=== PATIENT | female | born 1995 | race Caucasian/White ===

== ENCOUNTER 2017-08-10 12:25 | Emergency (ER) | payer SELFPAY ==
[2017-08-10 13:25] VITALS: BP 120/73; PULSE 70; RESP 20; TEMP 36.6; O2SAT 100; BMI 38.2
--- NOTE | 2017-08-10 14:04 | HMH.EDUTC ---
[facility] [place] Disposition Clinical Impression: URI (upper respiratory infection) Qualifiers: URI type: unspecified URI Qualified Code(s): J06.9 - Acute upper respiratory infection, unspecified Disposition: Home, Self-Care Condition on Discharge: Good Instructions: Sore Throat, DI for Nasal Congestion Additional Instructions: * Monitor Temp. Tylenol and/or Ibuprofen as needed. ER if fever is no less than 101 despite alternating Tylenol and Ibuprofen * Encourage fluids, water, Gatorade, powerade, pedialyte if /toddler/or child * Warm salt water gargles for throat irritation *Warm fluids *Sore throat lozenges *Sleep elevated *humidifier or vaporizer Lots of rest Increase fluids, water, Gatorade, powerade *Flonase 2 sprays each nostril daily but may take 2-3 days to notice improvement with it *Bromfed may cause drowsiness. Know how it effect you or your child. Before driving, caring for small children or sending your child to school *Your throat swab was sent to lab for culture. Those results area typically sent to your primary care physician. Be sure to follow up in 2-3 days if no improvement so they can review those results and treat if necessary If you dont have primary care I recommend you get one, but in the mean time you will have to return to a walk in clinic Follow up IMMEDIATELY for new or worsening of symptoms OR no noticeable improvement over the next 48-72 hours. 911 immediately for any life threatening symptoms such as chest pain or difficulty breathing Prescriptions: Brompheniramine/Pseudoephed/Dm [Bromfed DM Cough Syrup 5mL] 10 ml PO Q4HP PRN #250 ml PRN Reason: Cough Azithromycin [Z-Brant 250mg Tab] 250 mg PO UD DOSE PK #6 tab Fluticasone Propionate [Flonase 50mcg nasal spray 16gm] 2 spr NS DAILY #1 bottle predniSONE [Prednisone 5mg Tab Dose-Pack] 5 mg PO UD DOSE PK #1 pack Time of Disposition: 14:20 Medical Decision Making - Medical Records Medical records reviewed: Yes: I reviewed the patient's medical records. Vital Signs: 08/10/17 13:25 Temperature 98 F Temperature Source Temporal Artery Scan Pulse Rate [Right] 70 Respiratory Rate 20 Blood Pressure [Right Arm] 120/73 Blood Pressure Mean [Right Arm] 88 Blood Pressure Source [Right Arm] Automatic Cuff Blood Pressure Position [Right Arm] Sitting 02 Sat by Pulse Oximetry 100 Oxygen Delivery Method Room Air - Alexandru Inquiry Pt receiving controlled substance: No Alexandru was queried for this patient: No [facility] [place] HPI - General Stated complaint: body aches sore throat vomitting Mode of Arrival: Ambulatory Source of Information: Patient Limitations: No Limitations Description of Symptoms (Recalled from Triage Doc. by RN): SORE THROAT, BODY ACHES HEENT Symptoms (Recalled from RN notes): Yes Resp Symptoms (Recalled from RN notes): No Skin Symptoms (Recalled from RN notes): No MS Symptoms (Recalled from RN notes): No Functional Status (Recalled from RN notes): N - History of Present Illness Provider Complaint: Patient state that she has been having sorethroat, body aches, sinus pain and pressure State that it has continued to get worse over the last 2 days and state that she is having drainage in the back of her throat and it is making her sick at her stomach - Related Data Previous Rx's Medication Instructions Recorded Azithromycin [Z-Brant 250mg Tab] 250 mg PO UD DOSE PK #6 tab 08/10/17 Brompheniramine/Pseudoephed/Dm 10 ml PO Q4HP PRN #250 ml 08/10/17 [Bromfed DM Cough Syrup 5mL] Fluticasone Propionate [Flonase 2 spr NS DAILY #1 bottle 08/10/17 50mcg nasal spray 16gm] predniSONE [Prednisone 5mg Tab 5 mg PO UD DOSE PK #1 pack 08/10/17 Dose-Pack] Allergies Allergy/AdvReac Type Severity Reaction Status Date / Time No Known Allergies Allergy Verified 08/10/17 13:29 - Worker's Comp Is this a Worker's Comp case?: No [facility] History I have reviewed the patient's past medical history: Yes - *Social History Smoking Status: Current ever
[2017-08-10 14:23] VITALS: BP 120/73; PULSE 70; RESP 20; TEMP 36.6
[2017-08-10 14:30] LABS: UTC Influenza A Antigen Negative (Negative); UTC Influenza B Antigen Negative (Negative)
== END 2017-08-10 14:33 | disposition home or self-care (01) ==
PROVIDERS: Emergency Provider Nurse Practitioner
DX: J06.9 Acute upper respiratory infection, unspecified (principal); F17.210 Nicotine dependence, cigarettes, uncomplicated
CPT/HCPCS: 87804; 99201

== ENCOUNTER 2017-09-09 10:20 | Emergency (ER) | payer OTHER, SELFPAY ==
[2017-09-09 10:32] VITALS: BP 133/87; PULSE 79; RESP 20; TEMP 36.6; O2SAT 98; BMI 37.5
--- NOTE | 2017-09-09 10:51 | HMH.EDUTC ---
[facility] [place] Clinical Impression: Vomiting and diarrhea Disposition: Home, Self-Care Condition on Discharge: Good Instructions: Diarrhea, DI for Cough -- Adult, DI for Vomiting -- Adult, Loperamide Additional Instructions: ? Drink extra fluids with and between meals. If you have difficulty drinking, try very small amounts of water or suck on ice chips. ? Avoid fruit juices, as these do not replace minerals and can actually increase diarrhea. ? Children and adults can use sports drinks to replenish electrolytes. Younger children and infants should use products formulated for children, like oral rehydration solutions. ? Eat food in small amounts and let your stomach recover. ? Get lots of rest. You may feel tired or weak. ? Check with your doctor before taking medications or giving them to children. Never give aspirin to children or teenagers with a viral illness. This can cause Meliton syndrome, a potentially life-threatening condition. Prescriptions: Promethazine/Dextromethorphan [Promethazine-Dm Syrup] 5 ml PO Q4HP PRN #300 ml MDD 30ML/DAY PRN Reason: Cough Ondansetron [Zofran 4mg ODT] 4 mg PO Q8H PRN #10 tab.rapdis PRN Reason: Nausea Time of Disposition: 11:38 Medical Decision Making - Medical Records Medical records reviewed: Yes: I reviewed the patient's medical records. Vital Signs: 09/09/17 10:32 Temperature 97.8 F Temperature Source Temporal Artery Scan Pulse Rate [Right Brachial] 79 Respiratory Rate 20 Blood Pressure [Right Arm] 133/87 Blood Pressure Mean [Right Arm] 102 Blood Pressure Source [Right Arm] Automatic Cuff Blood Pressure Position [Right Arm] Sitting 02 Sat by Pulse Oximetry 98 Oxygen Delivery Method Room Air - Lab Data Lab results reviewed: Yes: I reviewed the patient's lab results. Lab Results 09/09/17 10:57: Influenza Type A Ag Negative, Influenza Type B Ag Negative Orders (Tests/Meds): ED MEDICATIONS Discontinued Medications Generic Name Dose Route Start Last Admin Trade Name Freq PRN Reason Stop Dose Admin Ondansetron HCl 4 mg 09/09/17 10:58 09/09/17 10:59 Zofran 4mg Odt SL 09/09/17 10:59 4 mg ONCE ONE Administration - Alexandru Inquiry Pt receiving controlled substance: No Alexandru was queried for this patient: No - Reevaluation(s) Time: 11:27 Reevaluation #1: Patient states that medication helped with nausea no vomiting since arrival [facility] [place] HPI - General Stated complaint: N/V Mode of Arrival: Family Vehicle Source of Information: Patient Limitations: No Limitations Description of Symptoms (Recalled from Triage Doc. by RN): C/O COUGH WITH VOMITING AND DIARRHEA HEENT Symptoms (Recalled from RN notes): No Resp Symptoms (Recalled from RN notes): Yes (COUGH) Skin Symptoms (Recalled from RN notes): No MS Symptoms (Recalled from RN notes): No Functional Status (Recalled from RN notes): N/A - History of Present Illness Provider Complaint: Patient state that she was seen and treated about 3 weeks ago for sinus infectionm State that now she is having cough, nausea, vomiting and diarrhea State that she had several eppisodes of diarrhea State that she has not had any diarrhea today but has had several eppisodes of vomiting - Related Data Previous Rx's Medication Instructions Recorded Ondansetron [Zofran 4mg ODT] 4 mg PO Q8H PRN #10 tab.rapdis 09/09/17 Promethazine/Dextromethorphan 5 ml PO Q4HP PRN #300 ml MDD 09/09/17 [Promethazine-Dm Syrup] 30ML/DAY Allergies Allergy/AdvReac Type Severity Reaction Status Date / Time No Known Allergies Allergy Verified 08/10/17 13:29 - Worker's Comp Is this a Worker's Comp case?: No [facility] History I have reviewed the patient's past medical history: Yes - Social History Smoking Status: Current every day smoker Tobacco Type: cigarettes Alcohol Intake: never - Psychiatric History Expresses thoughts of harming self/others: None Suicide Plan Description: No Plan ROS Obtained: Yes
--- NOTE | 2017-09-09 10:58 | ED_ITS ---
[facility] [place] Clinical Impression: Vomiting and diarrhea Disposition: Home, Self-Care Condition on Discharge: Good Instructions: Diarrhea, DI for Cough -- Adult, DI for Vomiting -- Adult, Loperamide Additional Instructions: ? Drink extra fluids with and between meals. If you have difficulty drinking, try very small amounts of water or suck on ice chips. ? Avoid fruit juices, as these do not replace minerals and can actually increase diarrhea. ? Children and adults can use sports drinks to replenish electrolytes. Younger children and infants should use products formulated for children, like oral rehydration solutions. ? Eat food in small amounts and let your stomach recover. ? Get lots of rest. You may feel tired or weak. ? Check with your doctor before taking medications or giving them to children. Never give aspirin to children or teenagers with a viral illness. This can cause Dania?s syndrome, a potentially life-threatening condition. Prescriptions: Promethazine/Dextromethorphan [Promethazine-Dm Syrup] 5 ml PO Q4HP PRN #300 ml MDD 30ML/DAY PRN Reason: Cough Ondansetron [Zofran 4mg ODT] 4 mg PO Q8H PRN #10 tab.rapdis PRN Reason: Nausea Time of Disposition: 11:38 Medical Decision Making - Medical Records Medical records reviewed: Yes: I reviewed the patient's medical records. Vital Signs: 09/09/17 10:32 Temperature 97.8 F Temperature Source Temporal Artery Scan Pulse Rate [Right Brachial] 79 Respiratory Rate 20 Blood Pressure [Right Arm] 133/87 Blood Pressure Mean [Right Arm] 102 Blood Pressure Source [Right Arm] Automatic Cuff Blood Pressure Position [Right Arm] Sitting 02 Sat by Pulse Oximetry 98 Oxygen Delivery Method Room Air - Lab Data Lab results reviewed: Yes: I reviewed the patient's lab results. Lab Results 09/09/17 10:57: Influenza Type A Ag Negative, Influenza Type B Ag Negative Orders (Tests/Meds): ED MEDICATIONS Discontinued Medications Generic Name Dose Route Start Last Admin Trade Name Freq PRN Reason Stop Dose Admin Ondansetron HCl 4 mg 09/09/17 10:58 09/09/17 10:59 Zofran 4mg Odt SL 09/09/17 10:59 4 mg ONCE ONE Administration - Alexandru Inquiry Pt receiving controlled substance: No Alexandru was queried for this patient: No - Reevaluation(s) Time: 11:27 Reevaluation #1: Patient states that medication helped with nausea no vomiting since arrival [facility] [place]PI - General Stated complaint: N/V Mode of Arrival: Family Vehicle Source of Information: Patient Limitations: No Limitations Description of Symptoms (Recalled from Triage Doc. by RN): C/O COUGH WITH VOMITING AND DIARRHEA HEENT Symptoms (Recalled from RN notes): No Resp Symptoms (Recalled from RN notes): Yes (COUGH) Skin Symptoms (Recalled from RN notes): No MS Symptoms (Recalled from RN notes): No Functional Status (Recalled from RN notes): N/A - History of Present Illness Provider Complaint: Patient state that she was seen and treated about 3 weeks ago for sinus infectionm State that now she is having cough, nausea, vomiting and diarrhea State that she had several eppisodes of diarrhea State that she has not had any diarrhea today but has had several eppisodes of vomiting - Related Data Previous Rx's Medication Instructions Recorded Ondansetron [Zofran 4mg ODT] 4 mg PO Q8H PRN #10 tab.
[2017-09-09 11:22] LABS: UTC Influenza A Antigen Negative (Negative); UTC Influenza B Antigen Negative (Negative)
[2017-09-09 12:04] VITALS: BP 132/86; PULSE 78; RESP 20; TEMP 36.6; O2SAT 99
[2018-01-28 11:49] LABS: UTC Strep Screen (Rapid) Negative (Negative)
== END 2017-09-09 12:06 | disposition home or self-care (01) ==
PROVIDERS: Emergency Provider Nurse Practitioner
DX: J06.9 Acute upper respiratory infection, unspecified (principal); F17.210 Nicotine dependence, cigarettes, uncomplicated
CPT/HCPCS: 87804; 87880; 99202

== ENCOUNTER 2017-09-17 09:13 | Emergency (ER) | payer OTHER, SELFPAY ==
[2017-09-17 09:28] VITALS: BP 140/71; PULSE 101; RESP 20; TEMP 36.6; O2SAT 98; BMI 37.5
--- NOTE | 2017-09-17 09:54 | XR_ITS ---
XR chest 2V INDICATION: Cough COMPARISON: None available FINDINGS: The cardiovascular structures are unremarkable. No mediastinal shift or hilar mass is evident. The lungs are well expanded and clear bilaterally. The costophrenic sulci are sharp. No significant bony anomalies are apparent. IMPRESSION: Negative chest.
[2017-09-17 09:57] LABS: UTC Strep Screen (Rapid) Negative (Negative)
--- NOTE | 2017-09-17 09:57 | HMH.EDUTC ---
[facility] [place] Disposition Clinical Impression: URI (upper respiratory infection) Disposition: Home, Self-Care Condition on Discharge: Good Instructions: Sore Throat, DI for Cough -- Adult Additional Instructions: *Nasal saline and bulb syringe or nose tiera to remove nasal drainage and help with nasal congestion. Hard to eat, drink, or sleep with nasal congestion so important to keep nose cleaned out. * Monitor Temp. Tylenol and/or Ibuprofen as needed. ER if fever is no less than 101 despite alternating Tylenol and Ibuprofen * Encourage fluids, water, Gatorade, powerade, pedialyte if infant/toddler/or child * Warm salt water gargles for throat irritation *Warm fluids *Sore throat lozenges *Sleep elevated *humidifier or vaporizer Lots of rest Increase fluids, water, Gatorade, powerade *Flonase 2 sprays each nostril daily but may take 2-3 days to notice improvement with it *Your throat swab was sent to lab for culture. Those results area typically sent to your primary care physician. Be sure to follow up in 2-3 days if no improvement so they can review those results and treat if necessary If you dont have primary care I recommend you get one, but in the mean time you will have to return to a walk in clinic Follow up IMMEDIATELY for new or worsening of symptoms OR no noticeable improvement over the next 48-72 hours. 911 immediately for any life threatening symptoms such as chest pain or difficulty breathing Prescriptions: Brompheniramine/Pseudoephed/Dm [Bromfed DM Cough Syrup 5mL] 10 ml PO Q4HP PRN #350 ml PRN Reason: Cough Albuterol Sulfate [Albuterol HFA Inhaler] 2 puffs IH Q6HP PRN #1 inh PRN Reason: Shortness Of Breath Or Wheezing Azithromycin [Z-Brant 250mg Tab] 250 mg PO UD DOSE PK #6 tab Fluticasone Propionate [Flonase 50mcg nasal spray 16gm] 2 spr NS DAILY #1 bottle Ondansetron [Zofran 4mg ODT] 4 mg PO Q8H PRN #10 tab.rapdis PRN Reason: Nausea predniSONE [Prednisone 20mg Tab] 20 mg PO BID #10 tab Time of Disposition: 10:12 Medical Decision Making - Medical Records Medical records reviewed: Yes: I reviewed the patient's medical records. - Alexandru Inquiry Pt receiving controlled substance: No Alexandru was queried for this patient: No Vital Signs: 09/17/17 09:28 Temperature 98 F Temperature Source Temporal Artery Scan Pulse Rate [Right] 101 H Respiratory Rate 20 Blood Pressure [Right Arm] 140/71 Blood Pressure Mean [Right Arm] 94 Blood Pressure Source [Right Arm] Automatic Cuff Blood Pressure Position [Right Arm] Sitting 02 Sat by Pulse Oximetry 98 Oxygen Delivery Method Room Air - Lab Data Lab results reviewed: Yes: I reviewed the patient's lab results. Lab Results 09/17/17 09:51: Influenza Type A Ag Negative, Influenza Type B Ag Negative, Strep Scn Rapid Clinic Negative 09/17/17 09:52: Tst Clinic Negative Orders (Tests/Meds): ORDERS Category Date Time Status CXR 2 view (NOT portable) [XR chest 2V] Stat Exams 09/17/17 09:54 Taken Strep Screen Confirmation Stat Micro 09/17/17 09:51 Received - Radiology Data #1 Image(s): Chest Image Reviewed: Yes I reviewed the patient's radiology image Preliminary Findings: Normal/NAD [facility] [place] HPI - General Stated complaint: Coughing,congestion, cant talk Time Seen by Provider: 09/17/17 09:50 Mode of Arrival: Ambulatory Source of Information: Patient Limitations: No Limitations Description of Symptoms (Recalled from Triage Doc. by RN): COUGH, HOARSENESS X1 WK HEENT Symptoms (Recalled from RN notes): Yes Resp Symptoms (Recalled from RN notes): No Skin Symptoms (Recalled from RN notes): No MS Symptoms (Recalled from RN notes): No Functional Status (Recalled from RN notes): N - History of Present Illness Provider Complaint: Patient states that she has not been feeling well for over a week now States that she has had cough, nasal congestion, and now lost her voice and feels like her cold is moving to her chest States that she was
[2017-09-17 09:59] LABS: UTC Pregnancy Test, Urine Negative (Negative)
[2017-09-17 09:59] LABS: UTC Influenza A Antigen Negative (Negative); UTC Influenza B Antigen Negative (Negative)
--- NOTE | 2017-09-17 10:00 | ED_ITS ---
[facility] [place] Clinical Impression: URI (upper respiratory infection) Disposition: Home, Self-Care Condition on Discharge: Good Instructions: Sore Throat, DI for Cough -- Adult Additional Instructions: *Nasal saline and bulb syringe or nose tiera to remove nasal drainage and help with nasal congestion. Hard to eat, drink, or sleep with nasal congestion so important to keep nose cleaned out. * Monitor Temp. Tylenol and/or Ibuprofen as needed. ER if fever is no less than 101 despite alternating Tylenol and Ibuprofen * Encourage fluids, water, Gatorade, powerade, pedialyte if infant/toddler/or child * Warm salt water gargles for throat irritation *Warm fluids *Sore throat lozenges *Sleep elevated *humidifier or vaporizer Lots of rest Increase fluids, water, Gatorade, powerade *Flonase 2 sprays each nostril daily but may take 2-3 days to notice improvement with it *Your throat swab was sent to lab for culture. Those results area typically sent to your primary care physician. Be sure to follow up in 2-3 days if no improvement so they can review those results and treat if necessary If you don? t have primary care I recommend you get one, but in the mean time you will have to return to a walk in clinic Follow up IMMEDIATELY for new or worsening of symptoms OR no noticeable improvement over the next 48-72 hours. 911 immediately for any life threatening symptoms such as chest pain or difficulty breathing Prescriptions: Brompheniramine/Pseudoephed/Dm [Bromfed DM Cough Syrup 5mL] 10 ml PO Q4HP PRN # 350 ml PRN Reason: Cough Albuterol Sulfate [Albuterol HFA Inhaler] 2 puffs IH Q6HP PRN #1 inh PRN Reason: Shortness Of Breath Or Wheezing Azithromycin [Z-Brant 250mg Tab] 250 mg PO UD DOSE PK #6 tab Fluticasone Propionate [Flonase 50mcg nasal spray 16gm] 2 spr NS DAILY #1 bottle Ondansetron [Zofran 4mg ODT] 4 mg PO Q8H PRN #10 tab.rapdis PRN Reason: Nausea predniSONE [Prednisone 20mg Tab] 20 mg PO BID #10 tab Time of Disposition: 10:12 Medical Decision Making - Medical Records Medical records reviewed: Yes: I reviewed the patient's medical records. - Alexandru Inquiry Pt receiving controlled substance: No Alexandru was queried for this patient: No Vital Signs: 09/17/17 09:28 Temperature 98 F Temperature Source Temporal Artery Scan Pulse Rate [Right] 101 H Respiratory Rate 20 Blood Pressure [Right Arm] 140/71 Blood Pressure Mean [Right Arm] 94 Blood Pressure Source [Right Arm] Automatic Cuff Blood Pressure Position [Right Arm] Sitting 02 Sat by Pulse Oximetry 98 Oxygen Delivery Method Room Air - Lab Data Lab results reviewed: Yes: I reviewed the patient's lab results. Lab Results 09/17/17 09:51: Influenza Type A Ag Negative, Influenza Type B Ag Negative, Strep Scn Rapid Clinic Negative 09/17/17 09:52: Tst Clinic Negative Orders (Tests/Meds): ORDERS Category Date Time Status CXR 2 view (NOT portable) [XR chest 2V] Stat Exams 09/17/17 09:54 Taken Strep Screen Confirmation Stat Micro 09/17/17 09:51 Received - Radiology Data #1 Image(s): Chest Image Reviewed: Yes I reviewed the patient's radiology image Preliminary Findings: Normal/NAD [facility] [place] HPI - General Stated complaint: Coughing,congestion, cant talk Time Seen by Provider: 09/17/17 09:50 Mode of Arrival: Ambulatory Source of Information: Patient Limitations: No Limitations Description of Symptom
[2017-09-17 10:15] VITALS: BP 140/71; PULSE 100; RESP 20; TEMP 36.6
== END 2017-09-17 10:18 | disposition home or self-care (01) ==
PROVIDERS: Emergency Provider Nurse Practitioner
DX: J06.9 Acute upper respiratory infection, unspecified (principal); F17.210 Nicotine dependence, cigarettes, uncomplicated
CPT/HCPCS: 71046; 81025; 87804; 87880; 99203

== ENCOUNTER 2017-09-24 16:11 | Emergency (ER) | payer OTHER, SELFPAY ==
[2017-09-24 16:14] VITALS: BP 157/91; PULSE 87; RESP 18; TEMP 36.9; O2SAT 100; BMI 37.1
--- NOTE | 2017-09-24 16:53 | HMH.EDURI ---
ED Disposition Clinical Impression: Laryngitis Bilateral otitis externa Qualifiers: Otitis externa type: unspecified type Chronicity: unspecified Qualified Code(s): H60.93 - Unspecified otitis externa, bilateral Disposition: Home, Self-Care Condition on Discharge: Good Instructions: DI for Otitis Externa, DI for Laryngitis Prescriptions: Cetirizine HCl/Pseudoephedrine [Zyrtec-D Tablet] 1 each PO DAILY #30 tab.er.12h Neomycin/Polymyxin B Sulf/Hc [Yzrbnyhc-Qetyxymsu-DI Otic Susp 10mL] 2 drops OT QID #1 drops.susp Time of Disposition: 16:55 - Critical Care Critical Care Time: No Attestation: On 09/24/17, the high probability of a clinically significant, sudden or life threatening deterioration of the following system(s) required my full and direct attention, intervention and personal management. The time I documented below is in addition to time spent performing reported procedures but includes the following listed in this critical care notation. Medical Decision Making - Medical Records Medical records reviewed: Yes: I reviewed the patient's medical records. - Alexandru Inquiry Pt receiving controlled substance: No Vital Signs: 09/24/17 16:14 09/24/17 17:29 Temperature 98.4 F 98.2 F Temperature Source Oral Oral Pulse Rate 74 Pulse Rate [Right Radial] 87 Respiratory Rate 18 18 Blood Pressure 131/84 Blood Pressure [Right Arm] 157/91 Blood Pressure Mean [Right Arm] 113 Blood Pressure Source Automatic Cuff Blood Pressure Position Sitting 02 Sat by Pulse Oximetry 100 Oxygen Delivery Method Room Air Room Air URI/Sore Throat HPI - General Chief Complaint: Upper Respiratory Infection Stated Complaint: SHEARER,Sinus Infection Time Seen by Provider: 09/24/17 17:05 Mode of Arrival: Family Vehicle Limitations: No Limitations Description of Symptoms (Recalled from ER Triage Doc. by RN): PT C/O UPPER RESPIRATORY INFECTION FOR A MONTH. PT STATES SHE HAS BEEN ON STEROIDS AND 2 DIFFERENT ANTIBIOTICS AND STILL NOT FEELING ANY BETTER. - History of Present Illness MD Complaint: sore throat, rhinorrhea, nasal congestion Onset (ago): month(s) (1) Duration: constant Severity: mild Severity scale (1-10): 2 Relieving factors: nothing Exacerbating factors: speaking Description of mucous: clear Able to tolerate fluids by mouth: Yes Context: other (previosu URIs) Associated symptoms: rhinorrhea, nasal congestion, sore throat, cough Treatments prior to arrival: antibiotics - Related Data Previous Rx's Medication Instructions Recorded Cetirizine HCl/Pseudoephedrine 1 each PO DAILY #30 tab.er.12h 09/24/17 [Zyrtec-D Tablet] Neomycin/Polymyxin B Sulf/Hc 2 drops OT QID #1 drops.susp 09/24/17 [Cqjnnqri-Znxfxjxjf-QY Otic Susp 10mL] Allergies Allergy/AdvReac Type Severity Reaction Status Date / Time No Known Allergies Allergy Verified 08/10/17 13:29 [facility] History I have reviewed the patient's past medical history: Yes Medical History: Denies:: Cancer, Diabetes Mellitus Type 1, Diabetes Mellitus Type 2, MRSA Amputation: No Fractures: No - Social History Smoking Status: Current every day smoker Tobacco Type: cigarettes Alcohol Intake: never - Psychiatric History Expresses thoughts of harming self/others: None Suicide Plan Description: No Plan ROS Obtained: Yes All systems reviewed & no additional complaints, Yes Systems reviewed as appropriate & no additional complaints - ENT Ears, Nose, Mouth, and Throat: Reports system reviewed and no additional complaints, except as docu, Reports as per HPI, Reports change in voice, Reports hoarseness, Reports nasal discharge, Reports sore throat Physical Exam - General General appearance: alert, in no apparent distress - Head Head exam: atraumatic, normocephalic, normal inspection - Eye Eye exam: Present: normal appearance, PERRL, EOMI - ENT ENT exam: Present: other (hoarseness, clear nasal discharge) - Neck Neck exam: Present: normal inspect
--- NOTE | 2017-09-24 16:57 | ED_ITS ---
ED Disposition Clinical Impression: Laryngitis Bilateral otitis externa Qualifiers: Otitis externa type: unspecified type Chronicity: unspecified Qualified Code(s) : H60.93 - Unspecified otitis externa, bilateral Disposition: Home, Self-Care Condition on Discharge: Good Instructions: DI for Otitis Externa, DI for Laryngitis Prescriptions: Cetirizine HCl/Pseudoephedrine [Zyrtec-D Tablet] 1 each PO DAILY #30 tab.er.12h Neomycin/Polymyxin B Sulf/Hc [Vcuxgbuc-Qpcwvivnc-[id number] Otic Susp 10mL] 2 drops OT QID #1 drops.susp Time of Disposition: 16:55 - Critical Care Critical Care Time: No Attestation: On 09/24/17, the high probability of a clinically significant, sudden or life threatening deterioration of the following system(s) required my full and direct attention, intervention and personal management. The time I documented below is in addition to time spent performing reported procedures but includes the following listed in this critical care notation. Medical Decision Making - Medical Records Medical records reviewed: Yes: I reviewed the patient's medical records. - Alexandru Inquiry Pt receiving controlled substance: No Vital Signs: 09/24/17 16:14 09/24/17 17:29 Temperature 98.4 F 98.2 F Temperature Source Oral Oral Pulse Rate 74 Pulse Rate [Right Radial] 87 Respiratory Rate 18 18 Blood Pressure 131/84 Blood Pressure [Right Arm] 157/91 Blood Pressure Mean [Right Arm] 113 Blood Pressure Source Automatic Cuff Blood Pressure Position Sitting 02 Sat by Pulse Oximetry 100 Oxygen Delivery Method Room Air Room Air URI/Sore Throat HPI - General Chief Complaint: Upper Respiratory Infection Stated Complaint: SHEARER,Sinus Infection Time Seen by Provider: 09/24/17 17:05 Mode of Arrival: Family Vehicle Limitations: No Limitations Description of Symptoms (Recalled from ER Triage Doc. by RN): PT C/O UPPER RESPIRATORY INFECTION FOR A MONTH. PT STATES SHE HAS BEEN ON STEROIDS AND 2 DIFFERENT ANTIBIOTICS AND STILL NOT FEELING ANY BETTER. - History of Present Illness MD Complaint: sore throat, rhinorrhea, nasal congestion Onset (ago): month(s) (1) Duration: constant Severity: mild Severity scale (1-10): 2 Relieving factors: nothing Exacerbating factors: speaking Description of mucous: clear Able to tolerate fluids by mouth: Yes Context: other (previosu URIs) Associated symptoms: rhinorrhea, nasal congestion, sore throat, cough Treatments prior to arrival: antibiotics - Related Data Previous Rx's Medication Instructions Recorded Cetirizine HCl/Pseudoephedrine 1 each PO DAILY #30 tab.er.12h 09/24/17 [Zyrtec-D Tablet] Neomycin/Polymyxin B Sulf/Hc 2 drops OT QID #1 drops.susp 09/24/17 [Kdypthvn-Bsfxfifav-WU Otic Susp 10mL] Allergies Allergy/AdvReac Type Severity Reaction Status Date / Time No Known Allergies Allergy Verified 08/10/17 13:29 [facility] History I have reviewed the patient's past medical history: Yes Medical History: Denies:: Cancer, Diabetes Mellitus Type 1, Diabetes Mellitus Type 2, MRSA Amputation: No Fractures: No - Social History Smoking Status: Current every day smoker Tobacco Type: cigarettes Alcohol Intake: never - Psychiatric History Expresses thoughts of harming self/others: None Suicide Plan Description: No Plan ROS Obtained: Yes All s
[2017-09-24 17:29] VITALS: BP 131/84; PULSE 74; RESP 18; TEMP 36.8; O2SAT 98
== END 2017-09-24 17:20 | disposition home or self-care (01) ==
PROVIDERS: Emergency Provider Emergency Medicine
DX: J04.0 Acute laryngitis (principal); H60.93 Unspecified otitis externa, bilateral
CPT/HCPCS: 99281